=== PATIENT | female | born 1970 | race Two or more races ===

== ENCOUNTER 2017-12-28 16:32 | Emergency (ER) | payer OTHER ==
[~2017-12-28] VITALS: Ht 162.6 cm; Wt 79.4 kg
== END 2017-12-28 20:18 | disposition home or self-care (01) ==
LOC: ER 16:32
DX: M25.561 Pain in right knee (principal); M79.661 Pain in right lower leg

== ENCOUNTER 2017-12-30 11:40 | Outpatient (CLI) | payer OTHER | END 2017-12-30 12:20 | disposition home or self-care (01) | LOC: MRI 11:40 | DX: S83.90XA Sprain of unspecified site of unspecified knee, initial encounter (principal) | CPT/HCPCS: 73721 ==

== ENCOUNTER → 2017-12-30 | Emergency (ER) | payer OTHER ==
[~2017-12-30] VITALS: Ht 162.6 cm; Wt 79.4 kg
== END | disposition home or self-care (01) ==
LOC: ER 08:19
DX: M25.562 Pain in left knee (principal)